=== PATIENT | female | born 1945 | race Caucasian/White ===

== ENCOUNTER 2017-06-17 10:43 | Emergency (ER) | payer OTHER ==
[~2017-06-17] VITALS: Ht 157.5 cm; Wt 112.3 kg
[2017-06-17 10:50] VITALS: TEMP 36.7; Ht 157.5 cm; Wt 112.3 kg
[2017-06-17] MEDS ORDERED: LORAZEPAM 2 MG/ML 1 ML VIAL IV STA (11:14)
[2017-06-17 11:34] LABS: BASO % 0.7 %; BASO ABS # 0.08 K/uL (0-0.2); EOS % 1.5 %; EOS ABS # 0.18 K/uL (0-0.5); HEMATOCRIT 40.3 % (37-47); HEMOGLOBIN 13.5 g/dL (12.0-16.0); LYMPH % 34.8 %; LYMPH ABS # 4.16 K/uL (1.2-3.4); MEAN CELL VOLUME 88.8 fL (80-100); MEAN CORPUSCULAR HEMOGLOBIN 29.7 pg (25-34); MEAN CORPUSCULAR HGB CONC 33.5 g/dl (32-36); MEAN PLATELET VOLUME 10.5 fL (7.4-10.4); MONO ABS # 0.83 K/uL (0.11-0.59); NEUT % 55.2 %; NEUT ABS # 6.59 K/uL (1.4-6.5); PLATELET COUNT 263 K/uL (130-400); RED CELL DISTRIBUTION WIDTH CV 14.1 % (11.5-14.5); RED CELL DISTRIBUTION WIDTH SD 45.4 fL (36.4-46.3); WHITE BLOOD COUNT 11.94 K/uL (4.8-10.8)
[2017-06-17 11:42] LABS: INR 1.8 (0.9-1.1); PTT PATIENT 32.4 SECONDS (21.0-31.0)
[2017-06-17 11:51] LABS: CALCIUM 9.2 mg/dl (8.5-10.1); CREATININE 1.05 mg/dl (0.60-1.20); POTASSIUM 3.7 mmol/L (3.5-5.1)
[2017-06-17] MEDS ORDERED: METF-384 PO (11:55)
[2017-06-17] MEDS ORDERED: LSN20 PO (12:05)
[2017-06-17] MEDS ORDERED: CHOL500021 PO (12:05)
[2017-06-17] MEDS ORDERED: ALLO100T PO (12:05)
[2017-06-17] MEDS ORDERED: CYAN10005 PO (12:05)
[2017-06-17] MEDS ORDERED: AMIO200T4 PO (12:05)
[2017-06-17] MEDS ORDERED: WARF2TAB8 PO (12:05)
[2017-06-17] MEDS ORDERED: TPRSR/50 PO (12:05)
[2017-06-17] MEDS ORDERED: GLIM4TAB2 PO (12:05)
[2017-06-17] MEDS ORDERED: LPR50X PO (12:33)
[2017-06-17] MEDS ORDERED: POTA10CA28 PO (12:33)
[2017-06-17] MEDS ORDERED: FRS/40 PO (12:33)
[2017-06-17] MEDS ORDERED: LORAZEPAM 2 MG/ML 1 ML VIAL ONE (13:23)
--- NOTE | 2017-06-17 13:59 | EMERGENCY ROOM VISIT NOTE ---
History Report prepared by Kareem: Derrick Jackson Under the Supervision of: Dr. Mitchell Morales M.D. First contact with patient: 10:57 Chief Complaint: BACK PAIN Stated Complaint: PAIN IN BACK AND GROIN History of Present Illness The patient is a 71 year old female who presents to the Emergency Room with complaints of constant lower back pain beginning three weeks ago. She rates her pain as a 7/10 in severity. The patient's pain is worsened with movement. She also complains of pain to her right groin, and increased urinary frequency. The patient states that her symptoms began with an episode of extreme back pain three months ago, and was initially diagnosed with a kidney infection. She states that she was later told she did not have an infection. She was later seen by orthopedics for her symptoms, and was found to have arthritic changes by x-ray. The patient has been taking ibuprofen for her pain. She is on Warfarin. She has a history of knee replacements. Pt denies trauma, LOC, headache, neck pain, fevers, chills, malaise, night sweats, weight loss, history of malignancy, chest pain, breathing difficulties, abdominal pain, saddle paraesthesias, bowel or bladder dysfunction, numbness, weakness, or other complaints. Source of History: patient Onset: Three months ago Position: back (lower) Symptom Intensity: 7/10 Timing: constant Modifying Factors (Worsening): movement Associated Symptoms: + urinary symptoms (increased frequency) Note: Positive: right groin pain. Review of Systems See HPI for pertinent positives and negatives. A total of ten systems were reviewed and were otherwise negative. Past Medical & Surgical Medical Problems: (1) Atrial fibrillation Surgical Problems: (1) History of knee replacement Family History No pertinent family history stated. Social History Smoking Status: Never Smoker Occupation Status: retired Current/Historical Medications Scheduled Allopurinol (Zyloprim), 1 TAB PO DAILY Amiodarone Hcl (Cordarone), 200 MG PO DAILY Cholecalciferol (Vitamin D3), 1 TAB PO DAILY Cyanocobalamin (Vitamin B-12), 1,000 MCG PO DAILY Glimepiride (Glimepiride), 1 TAB PO BID Lisinopril (Lisinopril), 20 MG PO DAILY Metformin Hcl (Glucophage), 1,000 MG PO DAILY Metoprolol Tartrate (Metoprolol Tartrate), 50 MG PO DAILY Warfarin Sod (Jantoven), 2 MG PO DAILY Scheduled PRN Furosemide (Lasix), 40 MG PO DAILY PRN for edema (give w/ potassium PO) Hydrocodone/Acetaminophen 5MG/325MG (Byron 5MG/325MG), 1-2 TABS PO Q6H PRN for Pain Potassium Chloride (Micro-K Ext Rel), 10 MEQ PO DAILY PRN for if taking Lasix for edema Allergies Coded Allergies: Penicillins (Verified Allergy, Intermediate, RASH, 03/23/09) Lidocaine (Verified Allergy, Unknown, 03/23/09) NSAIDs (Verified Allergy, Unknown, RASH; however pt said she takes Ibuprofen w/o problem, 06/17/17) Physical Exam Vital Signs Date Time Temp Pulse Resp B/P (MAP) Pulse Ox O2 Delivery O2 Flow Rate FiO2 06/17/17 16:06 62 16 178/84 94 06/17/17 15:07 56 16 186/80 93 Room Air 06/17/17 13:28 64 18 189/78 94 Room Air 06/17/17 11:44 64 18 206/80 94 Room Air 219/87 06/17/17 10:50 36.7 71 20 214/104 94 Room Air Physical Exam GENERAL: Awake, alert, uncomfortable-appearing, in no distress HENT: Normocephalic, atraumatic. Oropharynx unremarkable. EYES: Normal conjunctiva. Sclera non-icteric. NECK: Supple. No nuchal rigidity. FROM. No masses. RESPIRATORY: Clear to auscultation. No wheezes. No rales. Normal respiratory effort. CARDIAC: Normal rate. Normal rhythm. No murmurs. No rubs. Extremities warm and well perfused. Pulses equal. No JVD. GI: Soft, non-distended. No tenderness to palpation. No rebound or guarding. No masses. RECTAL: Deferred. MUSCULOSKELETAL: Atraumatic. Chest examination reveals no tenderness. The back is symmetrical on inspection without obvious abnormality. There is no CVA tenderness to palpation. No joint edema. LOWER EXTREMITIES: Calves are equal size bilaterally and non-tender. No edema. No discoloration. Right sciatic notch tenderness. Lipoma noted to the left thigh which is round, rubbery, and mobile. NEURO: Normal sensorium. No sensory or motor deficits noted. SKIN: No rash or jaundice noted. Medical Decision & Procedures ER Provider Diagnostic Interpretation: Radiology results as stated below per my review and radiologist interpretation: LUMBAR SPINE W/O CONTRAST FINDINGS: Large [id number] director of marketing and promotions localizer images demonstrate mild nonspecific bilateral perinephric stranding. Patient obesity is noted. No aortic aneurysm or adenopathy. The iliac vessels appear patent. There is no acute fracture or subluxation identified. Modic type II endplate degenerative changes with moderate to severe intervertebral disc space narrowing at L2-L3. Vacuum disc phenomenon at L3-L4. Conus medullaris terminates at the L1 level. Signal within the imaged thoracic spinal cord is within normal limits. The cauda equina appear normal. T12-L1: No central canal or neural foraminal stenosis. L1-L2: Small circumferential annular disc bulge with moderate facet arthrosis and ligamentum flavum thickening. No central canal or foraminal narrowing. L2-L3: Moderate circumferential annular disc bulge with posterior spondylitic spurring, mild to moderate facet arthrosis with ligamentum flavum thickening. AP dimension of the thecal sac is narrowed to 8 mm resulting in mild to moderate central canal stenosis. No significant foraminal narrowing. L3-L4: Small to moderate circumferential annular disc bulge with posterior spondylitic spurring, moderate facet arthrosis with trace facet effusions and ligament of flavum thickening. Superimposed right lateral recess/foraminal disc protrusion is noted with mild adjacent edema seen on the STIR images. These findings cause mild right lateral recess and mild right foraminal narrowing. Additionally, there is mild central canal and mild left foraminal stenosis. L4-L5: Intervertebral disc space narrowing with posterior spondylitic spurring and small circumferential annular disc bulge with superimposed broad-based central disc protrusion and annular fissure. Moderate facet arthrosis with ligamentum flavum thickening. Flattening of the ventral thecal sac without significant central canal narrowing. Mild left foraminal narrowing. Right foramen is patent. L5-S1: Intervertebral disc space narrowing with small circumferential disc osteophyte complex formation, moderate facet arthrosis with ligamentum flavum thickening. Flattening of the ventral thecal sac without significant central canal narrowing. Mild bilateral foraminal stenosis. IMPRESSION: 1. No acute fracture or subluxation of the lumbar spine. 2. At L3-L4, circumferential annular disc bulge with posterior spondylitic spurring, moderate facet arthrosis with trace facet effusions and ligamentum flavum thickening is noted along with a right lateral recess/foraminal disc protrusion with minimal adjacent edema, suggesting acute etiology. There is mild right lateral recess, mild central canal and mild bilateral foraminal narrowing at this interspace. 3. Modic type II endplate degenerative changes at L2-L3 with moderate intervertebral disc space narrowing. Circumferential annular disc bulge with posterior spondylitic spurring, facet arthrosis and ligamentum flavum thickening causes mild to moderate central canal narrowing. The above report was generated using voice recognition software. It may contain grammatical, syntax or spelling errors. Electronically signed by: Cordell Lucas M.D. 06/17/2017 2:42 PM Laboratory Results 06/17/17 11:20 Red Blood Count 4.54, Mean Corpuscular Volume 88.8, Mean Corpuscular Hemoglobin 29.7, Mean Corpuscular Hemoglobin Concent 33.5, Mean Platelet Volume 10.5, Neutrophils (%) (Auto) 55.2, Lymphocytes (%) (Auto) 34.8, Monocytes (%) (Auto) 7.0, Eosinophils (%) (Auto) 1.5, Basophils (%) (Auto) 0.7, Neutrophils # (Auto) 6.59, Lymphocytes # (Auto) 4.16, Monocytes # (Auto) 0.83, Eosinophils # (Auto) 0.18, Basophils # (Auto) 0.08 06/17/17 11:20 Test 06/17/17 11:15 06/17/17 11:20 Urine Color YELLOW Urine Appearance CLOUDY (CLEAR) Urine pH 5.0 (4.5-7.5) Urine Specific [place] 1.020 (1.000-1.030) Urine Protein 1+ (NEG) Urine Glucose (UA) NEG (NEG) Urine Ketones NEG (NEG) Urine Occult Blood NEG (NEG) Urine Nitrite NEG (NEG) Urine Bilirubin NEG (NEG) Urine Urobilinogen NEG (NEG) Urine Leukocyte Esterase MODERATE (NEG) Urine WBC (Auto) 10-30 /hpf (0-5) Urine RBC (Auto) 5-10 /hpf (0-4) Urine Hyaline Casts (Auto) 1-5 /lpf (0-5) Urine Epithelial Cells (Auto) >30 /lpf (0-5) Urine Bacteria (Auto) NEG (NEG) Urine Crystals TALC (NONE PRSENT) White Blood Count 11.94 K/uL (4.8-10.8) Red Blood Count 4.54 M/uL (4.2-5.4) Hemoglobin 13.5 g/dL (12.0-16.0) Hematocrit 40.3 % (37-47) Mean Corpuscular Volume 88.8 fL (80-100) Mean Corpuscular Hemoglobin 29.7 pg (25-34) Mean Corpuscular Hemoglobin Concent 33.5 g/dl (32-36) Platelet Count 263 K/uL (130-400) Mean Platelet Volume 10.5 fL (7.4-10.4) Neutrophils (%) (Auto) 55.2 % Lymphocytes (%) (Auto) 34.8 % Monocytes (%) (Auto) 7.0 % Eosinophils (%) (Auto) 1.5 % Basophils (%) (Auto) 0.7 % Neutrophils # (Auto) 6.59 K/uL (1.4-6.5) Lymphocytes # (Auto) 4.16 K/uL (1.2-3.4) Monocytes # (Auto) 0.83 K/uL (0.11-0.59) Eosinophils # (Auto) 0.18 K/uL (0-0.5) Basophils # (Auto) 0.08 K/uL (0-0.2) RDW Standard Deviation 45.4 fL (36.4-46.3) RDW Coefficient of Variation 14.1 % (11.5-14.5) Immature Granulocyte % (Auto) 0.8 % Immature Granulocyte # (Auto) 0.10 K/uL (0.00-0.02) Prothrombin Time 18.4 SECONDS (9.0-12.0) Prothromb Time International Ratio 1.8 (0.9-1.1) Activated Partial Thromboplast Time 32.4 SECONDS (21.0-31.0) Partial Thromboplastin Ratio 1.2 Anion Gap 8.0 mmol/L (3-11) Est Creatinine Clear Calc Drug Dose 56.5 ml/min Estimated GFR () 61.0 Estimated GFR (Non- 52.6 BUN/Creatinine Ratio 17.2 (10-20) Calcium Level 9.2 mg/dl (8.5-10.1) Laboratory results reviewed by me Medications Administered Medications (Trade) Dose Ordered Sig/Shanon Route Start Time Stop Time Status Last Admin Dose Admin Lorazepam (Ativan Inj) 1 mg NOW STAT IV 06/17/17 11:14 06/17/17 11:16 DC 06/17/17 13:26 1 MG ED Course 1109: The patient was evaluated in room C1B. A complete history and physical exam was performed. 1114: Ordered Ativan Inj 1 mg IV. 1600: I reevaluated the patient. Discussed results and discharge instructions: she verbalized understanding and agreement. The patient is ready for discharge. Medical Decision Triage Nursing notes reviewed and agree them. Additional history obtained from the family. The patient's history was concerning for back pain. Differential diagnosis: Etiologies such as fracture, aortic disease, metastatic disease, cord compression, discitis, infection, renal colic, gastrointestinal, lumbago, sciatica, cauda equina, as well as others were entertained. Physical findings: As above. ER treatment provided: IV Ativan prior to MRI as the patient is claustrophobic. She declined analgesia. On reassessment the patient felt better. Diagnostics interpreted by me: The labs revealed an unremarkable CBC and chemistry panel except for a mild leukocytosis. The patient has an INR of 1.8. Her urinalysis shows white cells but moderate epithelial cells as well. She has no bacteria present. Imaging studies: MRI as above The patient has a protruding disc and it is causing symptoms in the dermatome where she is feeling pain. She will need follow-up with orthopedic spine. This was discussed. Pain management was discussed. She has a formal pain management appointment coming as well. She will follow-up with her primary physician. I did discuss conservative management and she felt comfortable. If she worsens in any way she will be back to the ER. I gave my usual and customary discussion regarding this issue. By the evaluation outlined above other emergent etiologies such as those listed in the differential, as well as others, were deemed relatively unlikely. The patient was educated about the findings as listed above. All questions were answered and the patient was pleased with the treatment. Return instructions were outlined and the patient was discharged in stable condition. The patient was referred to orthopedic spine and her PCP for follow-up for a recheck of the current condition. Medication Reconcilliation Current Medication List: was personally reviewed by me Blood Pressure Screening Patient's blood pressure: Elevated blood pressure Blood pressure disposition: Referred to PCP Impression Primary Impression: Back pain Additional Impression: Herniated disc Scribe Attestation The scribe's documentation has been prepared under my direction and personally reviewed by me in its entirety. I confirm that the note above accurately reflects all work, treatment, procedures, and medical decision making performed by me. Departure Information Dispostion Home / Self-Care Prescriptions Hydrocodone/Acetaminophen 5MG/325MG (Byron 5MG/325MG) Tab 1-2 TABS PO Q6H Y for Pain, #14 TAB Prov: Mat Stein MD 06/17/17 Forms HOME CARE DOCUMENTATION FORM, IMPORTANT VISIT INFORMATION Patient Instructions My [facility] Additional Instructions BACK PAIN INSTRUCTIONS: MRI revealed a disc bulge and inflammation at the right L3-L4 nerve. DO NOT drive, drink alcohol, operate machinery, or perform dangerous activities today. You were given medications in the ER that can affect your ability to safely function or operate a vehicle. Hydrocodone/acetaminophen 5/325mg: Take 1-2 pills every 6 hours as needed for pain. Avoid additional Acetaminophen/Tylenol, alcohol, operating machinery or dangerous equipment, working on ladders or roofs, DRIVING, or situations where being under the influence may be dangerous. It is recommended to use a stool softener such as Colace, 100mg twice daily while taking this medication to avoid constipation. Rest and avoid heavy lifting until your symptoms resolve and then gradually return to full activity. A good rule of thumb is if it hurts your back to perform a certain activity, then it should be avoided until you are healthy again. A heating pad, warm compresses, or a hot shower may help with tight muscles and can be done several times a day as needed. Continue current medications. Return to the ER immediately for any numbness, tingling, severe pain, loss of control of your bowels or bladder, inability to walk, or as needed. Follow up with your primary care physician within 3-5 days for a recheck of your current condition. Follow-up with Dr. Mckeon in orthopedic spine as discussed. The number is below. Call the office tomorrow. Follow-up with pain management as scheduled. Problem Qualifiers
--- NOTE | 2017-06-17 14:43 | DIAGNOSTIC IMAGING REPORT ---
LUMBAR SPINE W/O CONTRAST CLINICAL HISTORY: 71 years-old Female with Back pain. Acute low back and groin pain COMPARISON: None. TECHNIQUE: Multiplanar, multi sequence MRI of the lumbar spine was performed without intravenous contrast. FINDINGS: Large [id number] senior energy market coordinator localizer images demonstrate mild nonspecific bilateral perinephric stranding. Patient obesity is noted. No aortic aneurysm or adenopathy. The iliac vessels appear patent. There is no acute fracture or subluxation identified. Modic type II endplate degenerative changes with moderate to severe intervertebral disc space narrowing at L2-L3. Vacuum disc phenomenon at L3-L4. Conus medullaris terminates at the L1 level. Signal within the imaged thoracic spinal cord is within normal limits. The cauda equina appear normal. T12-L1: No central canal or neural foraminal stenosis. L1-L2: Small circumferential annular disc bulge with moderate facet arthrosis and ligamentum flavum thickening. No central canal or foraminal narrowing. L2-L3: Moderate circumferential annular disc bulge with posterior spondylitic spurring, mild to moderate facet arthrosis with ligamentum flavum thickening. AP dimension of the thecal sac is narrowed to 8 mm resulting in mild to moderate central canal stenosis. No significant foraminal narrowing. L3-L4: Small to moderate circumferential annular disc bulge with posterior spondylitic spurring, moderate facet arthrosis with trace facet effusions and ligament of flavum thickening. Superimposed right lateral recess/foraminal disc protrusion is noted with mild adjacent edema seen on the STIR images. These findings cause mild right lateral recess and mild right foraminal narrowing. Additionally, there is mild central canal and mild left foraminal stenosis. L4-L5: Intervertebral disc space narrowing with posterior spondylitic spurring and small circumferential annular disc bulge with superimposed broad-based central disc protrusion and annular fissure. Moderate facet arthrosis with ligamentum flavum thickening. Flattening of the ventral thecal sac without significant central canal narrowing. Mild left foraminal narrowing. Right foramen is patent. L5-S1: Intervertebral disc space narrowing with small circumferential disc osteophyte complex formation, moderate facet arthrosis with ligamentum flavum thickening. Flattening of the ventral thecal sac without significant central canal narrowing. Mild bilateral foraminal stenosis. IMPRESSION: 1. No acute fracture or subluxation of the lumbar spine. 2. At L3-L4, circumferential annular disc bulge with posterior spondylitic spurring, moderate facet arthrosis with trace facet effusions and ligamentum flavum thickening is noted along with a right lateral recess/foraminal disc protrusion with minimal adjacent edema, suggesting acute etiology. There is mild right lateral recess, mild central canal and mild bilateral foraminal narrowing at this interspace. 3. Modic type II endplate degenerative changes at L2-L3 with moderate intervertebral disc space narrowing. Circumferential annular disc bulge with posterior spondylitic spurring, facet arthrosis and ligamentum flavum thickening causes mild to moderate central canal narrowing. The above report was generated using voice recognition software. It may contain grammatical, syntax or spelling errors. Electronically signed by: Cordell Lucas M.D. 06/17/2017 2:42 PM Dictated Date/Time: 06/17/2017 2:27 PM
[2017-06-17] MEDS ORDERED: HYDR-5688 PO (15:49)
[2017-06-17 16:06] VITALS: BP 178/84; PULSE 62; O2SAT 94
== END 2017-06-17 16:07 | disposition home or self-care (01) ==
LOC: C.EDB 10:44 → C.EDC 16:07
DX: M51.26 Other intervertebral disc displacement, lumbar region (principal); Z96.659 Presence of unspecified artificial knee joint; I48.91 Unspecified atrial fibrillation; Z79.899 Other long term (current) drug therapy; Z79.84 Long term (current) use of oral hypoglycemic drugs; Z79.01 Long term (current) use of anticoagulants; Z88.0 Allergy status to penicillin; Z88.8 Allergy status to other drugs, medicaments and biological substances; D17.30 Benign lipomatous neoplasm of skin and subcutaneous tissue of unspecified sites

== ENCOUNTER → 2017-09-09 | Outpatient (CLI) | payer OTHER ==
[~2017-09-09] MED LIST: ALLO100T PO; AMIO200T4 PO; CHOL500021 PO; CYAN10005 PO; FRS/40 PO; GLIM4TAB2 PO; HYDR-5688 PO; LISI-726 PO; LPR50X PO; METF-384 PO; POTA10CA28 PO; WARF2TAB8 PO
[2017-09-10 16:22] LABS: URIC ACID 5.5 mg/dl (2.6-7.2)
== END | disposition home or self-care (01) ==
LOC: C.LABMFLN 12:01
PROVIDERS: ATTEND Physician Assistant
DX: E11.9 Type 2 diabetes mellitus without complications (principal); E66.01 Morbid (severe) obesity due to excess calories; I10 Essential (primary) hypertension; E78.5 Hyperlipidemia, unspecified; E53.8 Deficiency of other specified B group vitamins; E55.9 Vitamin D deficiency, unspecified; M10.9 Gout, unspecified; R35.0 Frequency of micturition; R53.83 Other fatigue